=== PATIENT | female | born 1985 | race Caucasian/White ===

== ENCOUNTER 2016-08-24 17:40 | Emergency (ER) | payer SELFPAY ==
[2016-08-24 17:51] VITALS: BP 126/78; BMI 22.3
--- NOTE | 2016-08-24 18:21 | DR.GENAD ---
HPI - PCP Primary Care Physician: nfd - Complaint/Symptoms Chief Complaint Doctors Comments: Patient reports that she was pulling the starter string with her left hand and some how injured her left shoulder. She was yesterday X Ray negative. She was given Rx for tylenol #3 (15) and was advised to continue with toradol tab she had at home and return if symptoms got worse. Patient was advised my me that since she was still having discomfort ( pain) I would do a CT scan for further evaluation. In attempt to remove the Shoulder support patient did not want it off. Patient left AMA Chief Complaint:: patient was running a weed eater thursday and hurt her left shoulder. was seen in the er yesterday morning and she stated the pain is worse. 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 - Family History History of Family Medical Conditions: Yes Family Medical History: Hypertension - Social History Does patient currently use any type of tobacco product: Yes Have you used tobacco products in the last 12 months: Yes Type of Tobacco Use: Cigarettes How many years tobacco product used: 10 Does any household member use tobacco: No Alcohol Use: None Do you use any recreational Drugs:: No Lives With: Family Lives Where: Home - infectious screening In the last 2 months have you had wt loss of >10#?: NO Have you had fever, night sweats or hemotysis?: No Have you traveled outside the country in the last 6 months?: No Isolation: Standard PE - Vital Signs Vitals: Temperature 98.6 F Pulse Rate 94 Respiratory Rate 16 Blood Pressure 126/78 O2 Sat by Pulse Oximetry 100 - Diagnosis Discharge Problem: Sprain of right shoulder Qualifiers: Encounter type: subsequent encounter Shoulder sprain type: unspecified sprain Qualified Code(s): S43.401D - Unspecified sprain of right shoulder joint, subsequent encounter - Discharge Plan Disposition: 07 AGAINST MEDICAL ADVICE Condition: Stable - Follow ups/Referrals Follow ups/Referrals: NFD,None [Primary Care Provider] - 3 days - Instructions
== END 2016-08-24 19:22 | disposition left against medical advice (07) ==
LOC: ER 17:54
DX: S43.401D Unspecified sprain of right shoulder joint, subsequent encounter (principal); Y33.XXXA Other specified events, undetermined intent, initial encounter; Y92.9 Unspecified place or not applicable
CPT/HCPCS: 99281; 99282

== ENCOUNTER 2016-09-02 09:50 | Emergency (ER) | payer SELFPAY ==
[2016-09-02 10:09] VITALS: BP 128/72; BMI 22.6
[2016-09-02] MEDS ORDERED: TORADOL 60 MG VIAL IM ONE (10:56)
--- NOTE | 2016-09-02 10:57 | DR.GENAD ---
HPI - HPI Comment HPI Comment: PATIENT TOOK AZO WITHOUT RELIEF. PAIN WORSE TODAY AND NOW WITH HEMATURIA. SAW BLOOD YESTERDAY IN THE URINE. NO FEVER. NO HISTORY OF TRAUMA. - Complaint/Symptoms Chief Complaint Doctors Comments: RLQ ABDOMINAL AND RT FLANK PAIN TIMES 2 DAYS WITH DYSURIA. 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 - Family History History of Family Medical Conditions: Yes Family Medical History: Cancer, Hypertension - Social History Does patient currently use any type of tobacco product: Yes Have you used tobacco products in the last 12 months: Yes Type of Tobacco Use: Cigarettes How many years tobacco product used: 10 Does any household member use tobacco: Yes Alcohol Use: None Do you use any recreational Drugs:: No Lives With: Spouse Lives Where: Home - infectious screening In the last 2 months have you had wt loss of >10#?: NO Have you had fever, night sweats or hemotysis?: No Have you traveled outside the country in the last 6 months?: No Isolation: Standard ROS - Review of Systems Constitutional: No Symptoms Reported Eyes: No Symptoms Reported ENTM: No Symptoms Reported Respiratoy: No Symptoms Reported Cardiovascular: No Symptoms Reported Gastrointestinal/Abdominal: Abdominal Pain, Nausea, Vomiting Genitourinary: Dysuria, Frequency, Hematuria Neurological: No Symptoms Reported Musculoskeletal: No Symptoms Reported Integumentary: No Symptoms Reported Hematologic/Lymphatic: No Symptoms Reported Endocrine: No Symptoms Reported All Other Systems: Reviewed and Negative PE - Vital Signs Vitals: Temperature 99.0 F Pulse Rate 122 Respiratory Rate 16 Blood Pressure 128/72 O2 Sat by Pulse Oximetry 99 - General Limitations: No Limitations General Appearance: Alert - Head Head Exam: Normal Inspection - Eyes Eye exam: Normal Appearance - ENT ENT Exam: Normal External Ear Exam External Ear Exam: Normal External Inspection TM/Canal Exam: Bilateral Normal Nose Exam: Normal Nose Exam Mouth Exam: Normal Inspection Throat Exam: Normal Inspection - Neck Neck Exam: Normal Inspection - Chest Chest Inspection: Normal Inspection - Respiratory Respiratory Exam: Normal Lung Sounds Bilat Respiratory Exam: Bilateral Clear to Auscultation - Cardiovascular Cardiovascular Exam: Regular Rate, Normal Rhythm, Normal Heart Sounds - Abdominal Exam Abdominal Exam: Normal Bowel Sounds, Soft, Tenderness Abdominal Tenderness: RLQ, Moderate - Extremities Extremities Exam: Normal Inspection - Back Back Exam: (R) CVA Tenderness - Neurologic Neurological Exam: Alert, Oriented X3 - Psychiatric Psychiatric Exam: Anxious - Skin Skin Exam: Normal Color MDM - Differential Diagnosis Differential Diagnosis: RLQ ABDOMINAL PAIN, RIGHT FLANK PAIN, KIDNEY STONE, UTI , APPENDICITIS Course - Treatment Treatment: SEE ORDERS. IM TORADOL, PAIN IMPROVED. - Reevaluation 1st: Improved - Education/Counseling Education/Counseling: Patient, Education Educated On: Treatment, Diagnosis, Needs for Follow Up ROR - Labs Reviewed Laboratory Results Reviewed?: Yes Result Diagrams: 09/02/16 11:10 09/02/16 11:10 Laboratory: WBC 8.4 X10^3/uL (3.6-10.0) 09/02/16 11:10 RBC 4.06 X10^6/uL (3.5-5.4) 09/02/16 11:10 Hgb 12.8 g/dL (12.0-16.0) 09/02/16 11:10 Hct 37.5 % (36.0-47.0) 09/02/16 11:10 MCV 92.4 fL (80.0-100.0) 09/02/16 11:10 MCH 31.5 pg (27.0-34.0) 09/02/16 11:10 MCHC 34.0 g/dL (33.0-35.0) 09/02/16 11:10 RDW 12.9 % (11.6-16.5) 09/02/16 11:10 Plt Count 201 X10^3/uL (150.0-450.0) 09/02/16 11:10 MPV 9.4 fL (7.4-11.0) 09/02/16 11:10 Neut % 64.7 % (42.0-75.0) 09/02/16 11:10 Lymph % 26.8 % (21.0-51.0) 09/02/16 11:10 [place] % 7.1 % (0.0-13.0) 09/02/16 11:10 Eos % 0.9 % (0.9-2.9) 09/02/16 11:10 Baso % 0.5 % (0.2-1.0) 09/02/16 11:10 Neut # 5.4 x10^3/uL (2.2-4.8) H 09/02/16 11:10 Lymph # 2.2 X10^3/uL (1.3-2.9) 09/02/16 11:10 [place] # 0.6 x10^3/uL (0.3-0.8) 09/02/16 11:10 Eos # 0.1 x10^3/uL (0.0-0.2) 09/02/16 11:10 Baso # 0.0 X10^3/uL (0.0-0.1) 09/02/16 11:10 Absolute Nucleated RBC 0.0 /100WBC 09/02/16 11:10 Sodium 145 mmol/L (136-145) 09/02/16 11:10 Corrected Sodium TNP 09/02/16 11:10 Potassium 3.6 mmol/L (3.5-5.1) 09/02/16 11:10 Chloride 107 mmol/L (98-107) 09/02/16 11:10 Carbon Dioxide 25.4 mmol/L (21-32) 09/02/16 11:10 BUN 10 mg/dL (7-18) 09/02/16 11:10 Creatinine 0.88 mg/dL (0.55-1.02) 09/02/16 11:10 Est GFR (MDRD) Af Amer > 60 (>60) 09/02/16 11:10 Est GFR (MDRD) Non-Af > 60 (>60) 09/02/16 11:10 Glucose 94 mg/dL (65-99) 09/02/16 11:10 Calcium 8.6 mg/dL (8.5-10.1) 09/02/16 11:10 Corrected Calcium TNP 09/02/16 11:10 Total Bilirubin 0.50 mg/dL (0.2-1.0) 09/02/16 11:10 AST 18 Units/L (15-37) 09/02/16 11:10 ALT 19 Units/L (12-78) 09/02/16 11:10 Alkaline Phosphatase 45 Units/L (46-116) L 09/02/16 11:10 Total Protein 7.6 g/dL (6.4-8.2) 09/02/16 11:10 Albumin 4.1 g/dL (3.4-5.0) 09/02/16 11:10 Globulin 3.5 g/dL (2.5-4.5) 09/02/16 11:10 Albumin/Globulin Ratio 1.2 Ratio (1.1-2.1) 09/02/16 11:10 HCG, Qual Negative <10 mIU/mL 09/02/16 11:10 Specimen Type Clean catch urine 09/02/16 11:12 Urine Color [place] (YELLOW) 09/02/16 11:12 Urine Appearance Slightly hazy (CLEAR) 09/02/16 11:12 Urine pH Cancelled 09/02/16 11:04 Ur Specific [place] Cancelled 09/02/16 11:04 Urine Protein Cancelled 09/02/16 11:04 Urine Glucose (UA) Cancelled 09/02/16 11:04 Urine Ketones Cancelled 09/02/16 11:04 Urine Occult Blood Cancelled 09/02/16 11:04 Urine Nitrite Cancelled 09/02/16 11:04 Urine Bilirubin Cancelled 09/02/16 11:04 Urine Urobilinogen Cancelled 09/02/16 11:04 Ur Leukocyte Esterase Cancelled 09/02/16 11:04 Urine RBC Tntc /HPF (NEGATIVE) 09/02/16 11:12 Urine WBC Rare /HPF (NEGATIVE) 09/02/16 11:12 Ur Squamous Epith Cells Few /HPF (NEGATIVE) 09/02/16 11:12 Ur Transition Epith Cell Cancelled 09/02/16 11:04 Ur Renal Epithelial Cell Cancelled 09/02/16 11:04 Calcium Oxalate Crystal Cancelled 09/02/16 11:04 Cystine Crystals Cancelled 09/02/16 11:04 Uric Acid Crystals Cancelled 09/02/16 11:04 Triple Phos Crystals Cancelled 09/02/16 11:04 Tyrosine Crystals Cancelled 09/02/16 11:04 Other Crystals Cancelled 09/02/16 11:04 Amorphous Sediment Cancelled 09/02/16 11:04 Urine Bacteria Negative /HPF (Negative) 09/02/16 11:12 Hyaline Casts Cancelled 09/02/16 11:04 Granular Casts Cancelled 09/02/16 11:04 Fine Granular Casts Cancelled 09/02/16 11:04 Coarse Granular Casts Cancelled 09/02/16 11:04 WBC Casts Cancelled 09/02/16 11:04 Other Casts Cancelled 09/02/16 11:04 Urine Mucus Cancelled 09/02/16 11:04 Urine Trichomonas Cancelled 09/02/16 11:04 Urine Yeast Cancelled 09/02/16 11:04 Urine Sperm Cancelled 09/02/16 11:04 Ur Culture Indicated? Cancelled 09/02/16 11:04 Micro UA Comment Not ordered (-) 09/02/16 11:12 - XRAY XRAY Interpreted by: Radiologist XRAY Findings: REPORT DISCUSS WITH PATIENT. - Diagnosis Discharge Problem: Flank pain Abdominal pain Qualifiers: Abdominal location: right lower quadrant Qualified Code(s): R10.31 - Right lower quadrant pain UTI (urinary tract infection) Qualifiers: Urinary tract infection type: urethritis Qualified Code(s): N34.2 - Other urethritis - Discharge Plan Disposition: HOME, SELF-CARE Condition: Stable Prescriptions: Acetaminophen/Codeine Tab [TYLENOL w/CODEINE #3 (300 MG/30 MG) *] 1 tab PO Q4- 6H PRN #15 tab PRN Reason: Pain Doxycycline (Monohydrate) [Doxycycline Monohydrate] 100 mg PO BID #20 cap Ibuprofen [MOTRIN TAB 600 MG *] 600 mg PO TID PRN #60 tab PRN Reason: Pain/Inflammation - Follow ups/Referrals Follow ups/Referrals: NFD,None [Primary Care Provider] - 3 days - Instructions Instructions: Flank Pain, [id number], Abdominal Pain, Adult, [id number], Urinary Tract Infection, [id number]
[2016-09-02] MEDS ORDERED: TORADOL 60 MG VIAL ONE (10:59)
[2016-09-02 11:33] LABS: BASOPHILS % (AUTO) 0.5 % (0.2-1.0); EOSINOPHILS # (AUTO) 0.1 x10^3/uL (0.0-0.2); EOSINOPHILS % (AUTO) 0.9 % (0.9-2.9); HEMATOCRIT 37.5 % (36.0-47.0); HEMOGLOBIN 12.8 g/dL (12.0-16.0); LYMPHOCYTES # (AUTO) 2.2 X10^3/uL (1.3-2.9); LYMPHOCYTES % (AUTO) 26.8 % (21.0-51.0); MEAN CORPUSCULAR HEMOGLOBIN 31.5 pg (27.0-34.0); MEAN CORPUSCULAR VOLUME 92.4 fL (80.0-100.0); MEAN PLATELET VOLUME 9.4 fL (7.4-11.0); MONOCYTES # (AUTO) 0.6 x10^3/uL (0.3-0.8); MONOCYTES % (AUTO) 7.1 % (0.0-13.0); NEUTROPHILS # (AUTO) 5.4 x10^3/uL (2.2-4.8); NEUTROPHILS % (AUTO) 64.7 % (42.0-75.0); PLATELET COUNT 201 X10^3/uL (150.0-450.0); RED BLOOD COUNT 4.06 X10^6/uL (3.5-5.4); RED CELL DISTRIBUTION WIDTH 12.9 % (11.6-16.5); WHITE BLOOD COUNT 8.4 X10^3/uL (3.6-10.0)
[2016-09-02 11:39] LABS: COLOR,URINE ORANGE (YELLOW)
[2016-09-02 11:48] LABS: APPEARANCE,URINE SLIGHTLY HAZY (CLEAR)
[2016-09-02 11:49] LABS: BACTERIA,URINE Negative /HPF (Negative); RBC,URINE TNTC /HPF (NEGATIVE); SQUAMOUS EPITHELIAL CELL,UR FEW /HPF (NEGATIVE)
[2016-09-02 11:53] LABS: ALANINE AMINOTRANSFERASE 19 Units/L (12-78); ALBUMIN 4.1 g/dL (3.4-5.0); ALKALINE PHOSPHATASE 45 Units/L (46-116); ASPARTATE AMINO TRANSFERASE 18 Units/L (15-37); BLOOD UREA NITROGEN 10 mg/dL (7-18); CALCIUM 8.6 mg/dL (8.5-10.1); CARBON DIOXIDE 25.4 mmol/L (21-32); CHLORIDE 107 mmol/L (98-107); CREATININE 0.88 mg/dL (0.55-1.02); GLUCOSE 94 mg/dL (65-99); SODIUM 145 mmol/L (136-145); TOTAL PROTEIN 7.6 g/dL (6.4-8.2); eGFR BLACK RACES > 60 (>60); eGFR NON BLACK RACES > 60 (>60)
[2016-09-02 12:34] LABS: SERUM PREGNANCY TEST, QUAL NEGATIVE <10 mIU/mL
--- NOTE | 2016-09-02 13:16 | CT ---
HISTORY: Right flank pain, hematuria Study: CT abdomen pelvis without contrast Comparison: None Technique: Axial non contrast images with coronal and sagittal reformats. Dose reduction procedures were used with MA/kv adjusted for body size. Findings: The lung bases are clear. The liver, spleen, adrenal glands, and pancreas are within normal limits t o the limitations of an unenhanced examination. No opaque stones are visible within the gallbladder. The kidneys are unobstructed. There is a 1.5 millimeter right midpole nonobstructing renal calculus . No ureteral calculi are identified. No enlarged intraperitoneal or retroperitoneal lymphadenopathy is identified. There are no findings suggestive of diverticulitis or colitis. The appendix is shala l. Examination of the pelvis demonstrated no evidence for pelvic masses, pelvic fluid, or pelvic lym phadenopathy. No bladder abnormality is identified. No significant skeletal abnormality is identifie d. IMPRESSION: No evidence for obstructing renal or ureteral calculus 1.5 millimeter nonobstructing right midpole renal calculus Normal appendix Reported By:
== END 2016-09-02 13:42 | disposition home or self-care (01) ==
LOC: ER 10:49
DX: N34.2 Other urethritis (principal); R10.31 Right lower quadrant pain
CPT/HCPCS: 36415; 74176; 80053; 81015; 84703; 85025; 96372; 99283; J1885

== ENCOUNTER 2016-12-02 13:46 | Emergency (ER) | payer SELFPAY ==
[2016-12-02 13:46] VITALS: BP 128/72
[2016-12-02 13:51] VITALS: BMI 18.1
[2016-12-02 14:15] LABS: BASOPHILS # (AUTO) 0.1 X10^3/uL (0.0-0.1); EOSINOPHILS # (AUTO) 0.1 x10^3/uL (0.0-0.2); EOSINOPHILS % (AUTO) 1.4 % (0.9-2.9); HEMATOCRIT 34.6 % (36.0-47.0); LYMPHOCYTES # (AUTO) 2.3 X10^3/uL (1.3-2.9); LYMPHOCYTES % (AUTO) 31.3 % (21.0-51.0); MEAN CORPUSCULAR HEMOGLOBIN 31.9 pg (27.0-34.0); MEAN CORPUSCULAR HGB CONC 34.6 g/dL (33.0-35.0); MEAN CORPUSCULAR VOLUME 92.2 fL (80.0-100.0); MEAN PLATELET VOLUME 10.2 fL (7.4-11.0); MONOCYTES # (AUTO) 0.4 x10^3/uL (0.3-0.8); MONOCYTES % (AUTO) 5.5 % (0.0-13.0); NEUTROPHILS # (AUTO) 4.5 x10^3/uL (2.2-4.8); NEUTROPHILS % (AUTO) 60.8 % (42.0-75.0); PLATELET COUNT 171 X10^3/uL (150.0-450.0); RED BLOOD COUNT 3.76 X10^6/uL (3.5-5.4); RED CELL DISTRIBUTION WIDTH 13.1 % (11.6-16.5); WHITE BLOOD COUNT 7.3 X10^3/uL (3.6-10.0)
[2016-12-02 14:17] LABS: BILIRUBIN,URINE NEGATIVE (NEGATIVE); BLOOD/HEMOGLOBIN,URINE 4+ (NEGATIVE); GLUCOSE, URINE NEGATIVE (NEGATIVE); KETONES,URINE NEGATIVE (NEGATIVE); LEUKOCYTE ESTERASE ,URINE NEGATIVE (NEGATIVE); NITRITES,URINE NEGATIVE (NEGATIVE); PROTEIN,URINE NEGATIVE (NEGATIVE); UROBILINOGEN,URINE NORMAL (NORMAL)
[2016-12-02 14:26] LABS: APPEARANCE,URINE HAZY (CLEAR); BACTERIA,URINE TRACE /HPF (NEGATIVE); COLOR,URINE YELLOW (YELLOW); RBC,URINE 0-2 /HPF (NEGATIVE); SQUAMOUS EPITHELIAL CELL,UR FEW /HPF (NEGATIVE)
[2016-12-02 14:28] LABS: ALANINE AMINOTRANSFERASE 16 Units/L (12-78); ALBUMIN 3.9 g/dL (3.4-5.0); ALKALINE PHOSPHATASE 45 Units/L (46-116); ASPARTATE AMINO TRANSFERASE 14 Units/L (15-37); BLOOD UREA NITROGEN 8 mg/dL (7-18); CALCIUM 8.3 mg/dL (8.5-10.1); CARBON DIOXIDE 31.8 mmol/L (21-32); CHLORIDE 107 mmol/L (98-107); GLUCOSE 88 mg/dL (65-99); SODIUM 143 mmol/L (136-145); eGFR BLACK RACES > 60 (>60); eGFR NON BLACK RACES > 60 (>60)
[2016-12-02 14:35] LABS: ACETAMINOPHEN 0.6 ug/mL (10-30); SALICYLATE 3.2 mg/dL (2.8-20); SERUM PREGNANCY TEST, QUAL NEGATIVE <10 mIU/mL
[2016-12-02 14:38] LABS: BLOOD ALCOHOL < 3.0 mg/dL (0-19.9)
--- NOTE | 2016-12-02 14:44 | DR.GENAD ---
HPI - PCP Primary Care Physician: nfd - Complaint/Symptoms Chief Complaint Doctors Comments: Patient presents for help for detoxification off roxycodone. She states that she has been using roxycodone 30mg minimal of 7 -8 per twenty four hours for the past two months. She also uses xanax low dose. She was in recovery before for three years. Patient is non-homocidal and non suicidal. Chief Complaint:: needs medical clearence for a detox center. 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 - Family History History of Family Medical Conditions: Yes Family Medical History: Cancer, Hypertension - Social History Does patient currently use any type of tobacco product: Yes Have you used tobacco products in the last 12 months: Yes Type of Tobacco Use: Cigarettes How many years tobacco product used: 12 Does any household member use tobacco: Yes Do you use any recreational Drugs:: No Lives With: Family Lives Where: Home - infectious screening In the last 2 months have you had wt loss of >10#?: NO Have you had fever, night sweats or hemotysis?: No Have you traveled outside the country in the last 6 months?: No Isolation: Standard ROS - Review of Systems Eyes: No Symptoms Reported ENTM: No Symptoms Reported Respiratoy: No Symptoms Reported Cardiovascular: No Symptoms Reported Gastrointestinal/Abdominal: No Symptoms Reported Genitourinary: No Symptoms Reported Neurological: Tremors Musculoskeletal: No Symptoms Reported Integumentary: No Symptoms Reported Hematologic/Lymphatic: No Symptoms Reported Endocrine: No Symptoms Reported Psychiatric: No Symptoms Reported All Other Systems: Reviewed and Negative PE - Vital Signs Vitals: Temperature 98.7 F Respiratory Rate 18 Blood Pressure 128/72 - General Limitations: Physical Limitation General Appearance: Anxious - Head Head Exam: Normal Inspection, Atraumatic - Eyes Eye exam: Normal Appearance, PERRL, EOMI - ENT ENT Exam: Normal Exam External Ear Exam: Normal External Inspection TM/Canal Exam: Bilateral Normal Nose Exam: Normal Nose Exam Mouth Exam: Normal Inspection Throat Exam: Normal Inspection - Neck Neck Exam: Normal Inspection - Chest Chest Inspection: Normal Inspection - Respiratory Respiratory Exam: Normal Lung Sounds Bilat Respiratory Exam: Bilateral Clear to Auscultation - Cardiovascular Cardiovascular Exam: Regular Rate, Normal Rhythm - Abdominal Exam Abdominal Exam: Normal Inspection Abdominal Tenderness: negative: RUQ, RLQ, LUQ, LLQ, Epigastrium, Suprapubic, Diffuse, Mild, Moderate, Severe, Other - Extremities Extremities Exam: Normal Inspection, Full ROM - Back Back Exam: Normal Inspection - Neurologic Neurological Exam: Alert, Oriented X3, CN II-XII Intact - Psychiatric Psychiatric Exam: Normal Affect, Normal Mood - Skin Skin Exam: Warm, Dry, Intact Course - Treatment Treatment: Lorazepam 2mg IV -contacted several detoxification units- non with available female beds.--Patient will be discharged to home and han try again at later date for placement. - Reevaluation 1st: Improved, Unchanged ROR - Labs Reviewed Result Diagrams: 12/02/16 14:07 12/02/16 14:07 Laboratory: WBC 7.3 X10^3/uL (3.6-10.0) 12/02/16 14:07 RBC 3.76 X10^6/uL (3.5-5.4) 12/02/16 14:07 Hgb 12.0 g/dL (12.0-16.0) 12/02/16 14:07 Hct 34.6 % (36.0-47.0) L 12/02/16 14:07 MCV 92.2 fL (80.0-100.0) 12/02/16 14:07 MCH 31.9 pg (27.0-34.0) 12/02/16 14:07 MCHC 34.6 g/dL (33.0-35.0) 12/02/16 14:07 RDW 13.1 % (11.6-16.5) 12/02/16 14:07 Plt Count 171 X10^3/uL (150.0-450.0) 12/02/16 14:07 MPV 10.2 fL (7.4-11.0) 12/02/16 14:07 Neut % 60.8 % (42.0-75.0) 12/02/16 14:07 Lymph % 31.3 % (21.0-51.0) 12/02/16 14:07 [place] % 5.5 % (0.0-13.0) 12/02/16 14:07 Eos % 1.4 % (0.9-2.9) 12/02/16 14:07 Baso % 1.0 % (0.2-1.0) 12/02/16 14:07 Neut # 4.5 x10^3/uL (2.2-4.8) 12/02/16 14:07 Lymph # 2.3 X10^3/uL (1.3-2.9) 12/02/16 14:07 [place] # 0.4 x10^3/uL (0.3-0.8) 12/02/16 14:07 Eos # 0.1 x10^3/uL (0.0-0.2) 12/02/16 14:07 Baso # 0.1 X10^3/uL (0.0-0.1) 12/02/16 14:07 Absolute Nucleated RBC 0.0 /100WBC 12/02/16 14:07 Sodium 143 mmol/L (136-145) 12/02/16 14:07 Corrected Sodium TNP 12/02/16 14:07 Potassium 3.6 mmol/L (3.5-5.1) 12/02/16 14:07 Chloride 107 mmol/L (98-107) 12/02/16 14:07 Carbon Dioxide 31.8 mmol/L (21-32) 12/02/16 14:07 BUN 8 mg/dL (7-18) 12/02/16 14:07 Creatinine 0.80 mg/dL (0.55-1.02) 12/02/16 14:07 Est GFR (MDRD) Af Amer > 60 (>60) 12/02/16 14:07 Est GFR (MDRD) Non-Af > 60 (>60) 12/02/16 14:07 Glucose 88 mg/dL (65-99) 12/02/16 14:07 Calcium 8.3 mg/dL (8.5-10.1) L 12/02/16 14:07 Corrected Calcium TNP 12/02/16 14:07 Total Bilirubin 0.70 mg/dL (0.2-1.0) 12/02/16 14:07 AST 14 Units/L (15-37) L 12/02/16 14:07 ALT 16 Units/L (12-78) 12/02/16 14:07 Alkaline Phosphatase 45 Units/L (46-116) L 12/02/16 14:07 Total Protein 7.0 g/dL (6.4-8.2) 12/02/16 14:07 Albumin 3.9 g/dL (3.4-5.0) 12/02/16 14:07 Globulin 3.1 g/dL (2.5-4.5) 12/02/16 14:07 Albumin/Globulin Ratio 1.3 Ratio (1.1-2.1) 12/02/16 14:07 HCG, Qual Negative <10 mIU/mL 12/02/16 14:07 Specimen Type Clean catch urine 12/02/16 14:03 Urine Color Yellow (YELLOW) 12/02/16 14:03 Urine Appearance Hazy (CLEAR) 12/02/16 14:03 Urine pH 5.0 (5.0 - 8.0) 12/02/16 14:03 Ur Specific [place] 1.015 (1.000-1.030) 12/02/16 14:03 Urine Protein Negative (NEGATIVE) 12/02/16 14:03 Urine Glucose (UA) Negative (NEGATIVE) 12/02/16 14:03 Urine Ketones Negative (NEGATIVE) 12/02/16 14:03 Urine Occult Blood 4+ (NEGATIVE) 12/02/16 14:03 Urine Nitrite Negative (NEGATIVE) 12/02/16 14:03 Urine Bilirubin Negative (NEGATIVE) 12/02/16 14:03 Urine Urobilinogen Normal (NORMAL) 12/02/16 14:03 Ur Leukocyte Esterase Negative (NEGATIVE) 12/02/16 14:03 Urine RBC 0-2 /HPF (NEGATIVE) 12/02/16 14:03 Urine WBC 0-2 /HPF (NEGATIVE) 12/02/16 14:03 Ur Squamous Epith Cells Few /HPF (NEGATIVE) 12/02/16 14:03 Urine Bacteria Trace /HPF (NEGATIVE) 12/02/16 14:03 Ur Culture Indicated? No/not indicated 12/02/16 14:03 Salicylates 3.2 mg/dL (2.8-20) 12/02/16 14:07 Urine Opiates Screen Positive (NEG=<300) A 12/02/16 14:03 Urine Methadone Screen Negative (NEG=<300) 12/02/16 14:03 Acetaminophen 0.6 ug/mL (10-30) L 12/02/16 14:07 Ur Barbiturates Screen Negative (NEG=<200) 12/02/16 14:03 Ur Phencyclidine Scrn Negative (NEG=<25) 12/02/16 14:03 Ur Amphetamines Screen Negative (NEG=<1000) 12/02/16 14:03 U Benzodiazepines Scrn Positive (NEG=<200) A 12/02/16 14:03 Urine Cocaine Screen Negative (NEG=<300) 12/02/16 14:03 U Marijuana (THC) Screen Negative (NEG=<50) 12/02/16 14:03 Ethyl Alcohol mg/dL < 3.0 mg/dL (0-19.9) 12/02/16 14:07 - EKG Rate: 80 [place]: Normal Rhythm: NSR Block: None Hypertrophy: LAE - Diagnosis Discharge Problem: Drug abuse, opioid type - Discharge Plan Condition: Stable - Follow ups/Referrals Follow ups/Referrals: NFD,None [Primary Care Provider] - 3 days - Instructions
[2016-12-02] MEDS ORDERED: ATIVAN INJ 2 MG VIAL IVP ONE ×2 (14:46→15:14)
[2016-12-02] MEDS ORDERED: ATIVAN INJ 2 MG VIAL ONE (14:47)
[2016-12-02] MEDS ORDERED: NS 1000 ML 1,000 ML ONE (14:48)
[2016-12-02] MEDS ORDERED: NS 1000 ML 1,000 ML IV SCH (15:00)
== END 2016-12-02 15:43 | disposition home or self-care (01) ==
LOC: ER 13:53
DX: F11.10 Opioid abuse, uncomplicated (principal)
CPT/HCPCS: 36415; 80053; 80307; 80320; 81001; 84703; 85025; 93005; 93010; 96365; 96374; 96375; 99283; A4222; G0434; G6038; G6039; G6040; J2060